=== PATIENT | male | born 1950 | race Caucasian/White ===

== ENCOUNTER 2025-09-08 20:59 | Emergency (ER) | payer MEDICARE, OTHER, SELFPAY ==
[2025-09-08 21:01] VITALS: BP 174/81; PULSE 68; RESP 18; TEMP 36.5; O2SAT 96; BMI 33.5
--- OUTSIDE RECORDS SUMMARY | 2025-09-08 21:08 | XMS_ITS | Encounter Summary ---
Author Organization [facility] Address [address] [place] [address] Care Team Providers Care Natural Resources Engineer Name Role Phone Shraddha Morales MD Primary Care Provider +1- [phone] Encounter Details Date Type Department Care Team (Latest Contact Info) Description 05/27/2001 Outpatient Historical HIS [facility] Gabe hKan MD NO ADDRESS ON FILE Unspecified gastritis and gastroduodenitis with hemorrhage (Primary Dx); Personal history of colonic polyps Social History Tobacco Use Types Packs/Day Years Used Date Smoking Tobacco: Never Assessed Sex and Gender Information Value Date Recorded Sex Assigned at Not on file Legal Sex Male 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
--- OUTSIDE RECORDS SUMMARY | 2025-09-08 21:08 | XMS_ITS | Encounter Summary ---
Author Organization [facility] Address [address] [place] [address] Care Team Providers Care Automation Tester Name Role Phone Shraddha Morales MD Primary Care Provider +1- [phone] Encounter Details Date Type Department Care Team (Latest Contact Info) Description 10/22/2005 Outpatient Historical [facility] [place] [address] [place] [address] James Mcnally MD NO ADDRESS ON FILE HYPERTENSION NOS (Primary Dx); PAROX ATRIAL TACHYCARDIA Social History Tobacco Use Types Packs/Day Years Used Date Smoking Tobacco: Never Assessed Sex and Gender Information Value Date Recorded Sex Assigned at Not on file 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
--- OUTSIDE RECORDS SUMMARY | 2025-09-08 21:08 | XMS_ITS | Encounter Summary ---
Author Organization [facility] Address [address] [place] [address] Care Team Providers Care Auriculotherapist Name Role Phone Shraddha Morales MD Primary Care Provider +1- [phone] Encounter Details Date Type Department Care Team (Latest Contact Info) Description 08/31/2006 Outpatient [facility] Gastroenterology[address] [place] [address] Gabe Khan MD NO ADDRESS ON FILE Unspecified Follow-Up Examination (Primary Dx); Personal History of Colonic Polyps Social History Tobacco Use Types Packs/Day Years Used Date Smoking Tobacco: Never Assessed Sex and Gender Information Value Date Recorded Sex Assigned at Not on file Legal Sex Male 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
--- OUTSIDE RECORDS SUMMARY | 2025-09-08 21:08 | XMS_ITS | Encounter Summary ---
Author Organization [facility] Address [address] [address] Care Team Providers Care Overnight Babysitter Name Role Phone Shraddha Morales MD Primary Care Provider +1- [phone] Reason for Referral * Outpatient Services (Routine) - Closed Specialty Diagnoses / Procedures Referred By Contac t Referred To Contact Diagnoses Essential (primary) hypertension Procedures MRA ABDOMEN W WO CONTRAST Shraddha Morales MD [address] [place] [address] Phone: tel: fax: [facility] Pre-Registration [place] CALL TO MAKE APPOINTMENT ONLY [address] [place] [address] Phone: tel: fax: Referral ID Status Reason Start Date Expiration Date V isits Requested Visits Authorized [id number] Closed [facility] TO SCHEDULE ([facility]) 05/25/2017 06/25/2018 1 1 Encounter Details Date Type Department Care Team (Latest Contact Info) Description 05/25/2017 Ancillary Orders [facility] Pre-Registration [place] CALL TO MAKE APPOINTMENT ONLY [address] [place] [address] Shraddha Morales MD [address] [place] [address] Essential (primary) hypertension Social History Tobacco Use Types Packs/Day Years Used Date Smoking Tobacco: Never Alcohol Use Standard Drinks/Week Comments No 0 (1 standard drink = 0.6 oz pur e alcohol) Sex and Gender Information Value Date Recorded Sex Assigned at Not on file Legal Sex Male 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 Exam: MRA ABDOMEN W WO CONTRAST Date/Time of Exam: 06/04/2017 11:56 AM Reason For Exam: Essential (primary) hypertension. Technique: MR angiography of the abdomen was performed prior to and following the administration of intravenous contrast. Contrast: 20 mL of MultiHance contrast material Findings: This examination demonstrate solitary widely patent renal arteries bilaterally. The superior mesenteric artery and the celiac artery are widely patent. The KIARA appears patent. The aorta is of normal contour and diameter. The kidneys are unremarkable. The gallbladder and the visualized portions of the liver appear normal. IMPRESSION: This examination demonstrates no evidence of flow-limiting renal artery stenosis. Narrative Procedure Note Yasmin Yuan MD - 06/04/2017 IMPRESSION IMPRESSION: Please see below. Exam: MRA ABDOMEN W WO CONTRAST Date/Time of Exam: 06/04/2017 11:56 AM Reason For Exam: Essential (primary) hypertension. Technique: MR angiography of the abdomen was performed prior to and following the administration of intravenous contrast. Contrast: 20 mL of MultiHance contrast material Findings: This examination demonstrate solitary widely patent renal arteries bilaterally. The superior mesenteric artery and the celiac artery are widely patent. The KIARA appears patent. The aorta is of normal contour and diameter. The kidneys are unremarkable. The gallbladder and the visualized portions of the liver appear normal. IMPRESSION: This examination demonstrates no evidence of flow-limiting renal artery stenosis. us Shraddha Morales MD MR ORDERABLES Final Resul t documented in this encounter Visit Diagnoses Diagnosis Essential (primary) hypertension Unspecified essential hypertension Essential (primary) hypertension Unspecified essential hypertension documented in this encounter Care Teams Overnight Babysitter Relationship Specialty Start Date End Date Shraddha Morales MD [address] [place] [address] PCP - General Family Practice 04/28/17 documented as of this encounter
--- OUTSIDE RECORDS SUMMARY | 2025-09-08 21:08 | XMS_ITS | Encounter Summary ---
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
--- OUTSIDE RECORDS SUMMARY | 2025-09-08 21:08 | XMS_ITS | Encounter Summary ---
Author Organization [facility] Address [address] [place] [address] Care Team Providers Care Examining Officer Name Role Phone Shraddha Morales MD Primary Care Provider +1- [phone] Encounter Details Date Type Department Care Team (Late st Contact Info) Description 03/02/2000 Outpatient Historical [facility] Medicine [address] [phone] Social History Tobacco Use Types Packs/Day Years Used Date Smoking Tobacco: Never Assessed Sex and Gender Information Value Date Recorded Sex Assigned at Not on file Legal Sex Male 5:01 AM CHAMBER WALKER Gender Identity Not on file Sexual Orientation Not on file documented as of this encounter Plan of Treatment Not on file documented as of this encounter Visit Diagnoses Not on filedocumented in this encounter Care Teams Examining Officer Relationship Specialty Start Date End Date Shraddha Morales MD [address] [place] [address] PCP - General Family Practice 04/28/17 documented as of this encounter
--- OUTSIDE RECORDS SUMMARY | 2025-09-08 21:08 | XMS_ITS | Encounter Summary ---
Author Organization [facility] Address [address] [facility] Attn: [place] [address] Care Team Providers Care Software Tools Build Engineer Name Role Phone Shraddha Morales MD Primary Care Provider +1- [phone] Encounter Details Date Type Department Care Team (Late st Contact Info) Description 05/27/2001 Outpatient Historical Gabe Khan MD NO ADDRESS ON FILE Social History Tobacco Use Types Packs/Day Years Used Date Smoking Tobacco: Never Assessed Sex and Gender Information Value Date Recorded Sex Assigned at Not on file Legal Sex Male 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
--- OUTSIDE RECORDS SUMMARY | 2025-09-08 21:08 | XMS_ITS | Encounter Summary ---
Author Organization [facility] Address [address] [place] [address] Care Team Providers Care Network Control Operators Supervisor Name Role Phone Shraddha Morales MD Primary Care Provider +1- [phone] Encounter Details Date Type Department Care Team (Latest Contact Info) Description 07/14/[address] 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
--- OUTSIDE RECORDS SUMMARY | 2025-09-08 21:08 | XMS_ITS | Encounter Summary ---
Author Organization [facility] Address [address] [place] [address] Care Team Providers Care Sourcing Analyst Name Role Phone Shraddha Morales MD Primary Care Provider [phone]- [phone] Encounter Details Date Type Department Care Team (Latest Contact Info) Description 08/31/2006 Outpatient Historical [facility] [place] [address] [place] [address] Gabe Khan MD NO ADDRESS ON FILE Personal History of Colonic Polyps (Primary Dx) Social History Tobacco Use Types Packs/Day Years Used Date Smoking Tobacco: Never Assessed Sex and Gender Information Value Date Recorded Sex Assigned at Not on file Legal Sex Male 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
--- OUTSIDE RECORDS SUMMARY | 2025-09-08 21:08 | XMS_ITS | Encounter Summary ---
Author Organization [facility] Address [address] [place] [address] Care Team Providers Care Distribution Engineering Technologist Name Role Phone Shraddha Morales MD Primary Care Provider +1- [phone] Encounter Details Date Type Department Care Team (Late st Contact Info) Description 03/31/2001 Outpatient Historical [facility] Klaus Israel MD [address] [facility] [address] [place] [address] Special screening for malignant neoplasm of prostate (Primary Dx) Social History Tobacco Use Types Packs/Day Years Used Date Smoking Tobacco: Never Assessed Sex and Gender Information Value Date Recorded Sex Assigned at Not on file Legal Sex Male 5:01 AM TRANSMITTER SUPERVISOR Gender Identity Not on file Sexual Orientation Not on file documented as of this encounter Plan of Treatment Not on file documented as of this encounter Visit Diagnoses Diagnosis Special screening for malignant neoplasm of prostate- Primary documented in this encounter Care Teams Distribution Engineering Technologist Relationship Specialty Start Date End Date Shraddha Morales MD [address] [place] [address] PCP - General Family Practice 04/28/17 documented as of this encounter
--- OUTSIDE RECORDS SUMMARY | 2025-09-08 21:08 | XMS_ITS | Encounter Summary ---
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
--- OUTSIDE RECORDS SUMMARY | 2025-09-08 21:08 | XMS_ITS | Encounter Summary ---
Author Organization [facility] Address [address] [place] [address] Care Team Providers Care Assistant Men'S Soccer Coach Name Role Phone Shraddha Morales MD Primary Care Provider +1- [phone] Encounter Details Date Type Department Care Team (Latest Contact Info) Description 05/05/2001 Outpatient [facility] [address] [place] [address] Klaus Israel MD [address] [place] [address] Reflux esophagitis (Primary Dx); Unspecified gastritis and gastroduodenitis without mention of hemorrhage; Unspecified essential hypertension; Other and unspecified hyperlipidemia Social History Tobacco Use Types Packs/Day Years Used Date Smoking Tobacco: Never Assessed Sex and Gender Information Value Date Recorded Sex Assigned at Not on file Legal Sex Male 5:01 AM ATHLETIC TRAINING INTERNSHIP Gender Identity Not on file Sexual Orientation Not on file documented as of this encounter Plan of Treatment Not on file documented as of this encounter Visit Diagnoses Diagnosis Reflux esophagitis- Primary Unspecified gastritis and gastroduodenitis without mention of hemorrhage Unspecified essential hypertension Other and unspecified hyperlipidemia documented in this encounter Care Teams Assistant Men'S Soccer Coach Relationship Specialty Start Date End Date Shraddha Morales MD [address] [place] [address] PCP - General Family Practice 04/28/17 documented as of this encounter
--- OUTSIDE RECORDS SUMMARY | 2025-09-08 21:08 | XMS_ITS | Encounter Summary ---
Author Organization [facility] Address [address] [place] [address] Care Team Providers Care Production Machinist Name Role Phone Shraddha Morales MD Primary Care Provider +1- [phone] Encounter Details Date Type Department Care Team (Late st Contact Info) Description 03/21/1999 Outpatient Historical [facility] Social History Tobacco Use Types Packs/Day Years Used Date Smoking Tobacco: Never Assessed Sex and Gender Information Value Date Recorded Sex Assigned at Not on file Legal Sex Male 5:01 AM CAFE AIDE Gender Identity Not on file Sexual Orientation Not on file documented as of this encounter Plan of Treatment Not on file documented as of this encounter Visit Diagnoses Not on filedocumented in this encounter Care Teams Production Machinist Relationship Specialty Start Date End Date Shraddha Morales MD [address] [place] [address] PCP - General Family Practice 04/28/17 documented as of this encounter
--- OUTSIDE RECORDS SUMMARY | 2025-09-08 21:08 | XMS_ITS | Encounter Summary ---
Author Organization [facility] Address [address] [place] [address] Care Team Providers Care Route Sales Delivery Drivers Supervisor Name Role Phone Shraddha Morales MD Primary Care Provider +1- [phone] Encounter Details Date Type Department Care Team (Late st Contact Info) Description 02/20/2000 Outpatient Historical [address] [phone] Social History Tobacco Use Types Packs/Day Years Used Date Smoking Tobacco: Never Assessed Sex and Gender Information Value Date Recorded Sex Assigned at Not on file Legal Sex Male 5:01 AM THERAPY TECHNICIAN Gender Identity Not on file Sexual Orientation Not on file documented as of this encounter Plan of Treatment Not on file documented as of this encounter Visit Diagnoses Not on filedocumented in this encounter Care Teams Route Sales Delivery Drivers Supervisor Relationship Specialty Start Date End Date Shraddha Morales MD [address] [place] [address] PCP - General Family Practice 04/28/17 documented as of this encounter
--- OUTSIDE RECORDS SUMMARY | 2025-09-08 21:08 | XMS_ITS | Encounter Summary ---
Author Organization [facility] Address [address] [place] [address] Care Team Providers Care Grappler Name Role Phone Shraddha Morales MD Primary Care Provider +1- [phone] Encounter Details Date Type Department Care Team (Latest Contact Info) Description 03/31/2001 Outpatient Historical [facility] [place] [address] [place] [address] Klaus Israel MD [address] [place] [address] Hemoptysis (Primary Dx) Social History Tobacco Use Types Packs/Day Years Used Date Smoking Tobacco: Never Assessed Sex and Gender Information Value Date Recorded Sex Assigned at Not on file Legal Sex Male 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
--- OUTSIDE RECORDS SUMMARY | 2025-09-08 21:08 | XMS_ITS | Encounter Summary ---
Author Organization [facility] Address [address] [place] [address] Care Team Providers Care Education Diagnostician Name Role Phone Shraddha Morales MD Primary Care Provider +1- [phone] Encounter Details Date Type Department Care Team (Latest Contact Info) Description 03/31/[address] [facility] [place] [address] [place] [address] Klaus Israel MD [address] [place] [address] Hemoptysis (Primary Dx); Abdominal pain, unspecified site; Unspecified essential hypertension Social History Tobacco Use Types Packs/Day Years Used Date Smoking Tobacco: Never Assessed Sex and Gender Information Value Date Recorded Sex Assigned at Not on file Legal Sex Male 5:01 AM QUILL STRIPPER Gender Identity Not on file Sexual Orientation Not on file documented as of this encounter Plan of Treatment Not on file documented as of this encounter Visit Diagnoses Diagnosis Hemoptysis- Primary Abdominal pain, unspecified site Unspecified essential hypertension documented in this encounter Care Teams Education Diagnostician Relationship Specialty Start Date End Date Shraddha Morales MD [address] [place] [address] PCP - General Family Practice 04/28/17 documented as of this encounter
--- OUTSIDE RECORDS SUMMARY | 2025-09-08 21:08 | XMS_ITS | Encounter Summary ---
Author Organization [facility] Address [address] [place] [address] Care Team Providers Care Leasing Associate Name Role Phone Shraddha Morales MD Primary Care Provider +1- [phone] Encounter Details Date Type Department Care Team (Latest Contact Info) Description 01/21/2005 Outpatient Historical [facility] Cardiology- [place] [address] [place] [address] James Mcnally MD NO ADDRESS ON FILE PAROX ATRIAL TACHYCARDIA (Primary Dx); HYPERTENSION NOS; MIXED HYPERLIPIDEMIA Social History Tobacco Use Types Packs/Day Years Used Date Smoking Tobacco: Never Assessed Sex and Gender Information Value Date Recorded Sex Assigned at Not on file Legal Sex Male 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
--- OUTSIDE RECORDS SUMMARY | 2025-09-08 21:08 | XMS_ITS | Clinical Summary ---
Author Organization [facility] tone Address [address] [place] [address] Care Team Providers Care Epic Professional Name Role Phone Shraddha Morales MD Primary Care Provider Allergies Active Allergy Reactions Criticality Noted Date Comments Penicillins Swelling Low 03/20/2009 Medications ALLOPURINOL 300 mg Oral Tab Take 300 mg by mouth daily. Active GARLIC 1,000 mg Oral Cap Take by mouth. Active simvastatin (ZOCOR) 20 mg tablet Take 20 mg by mouth late in the day. Active omeprazole (PriLOSEC) 20 mg Capsule, Delayed Release(E.C.) Take 20 mg by mouth daily. Active carvedilol (COREG) 12.5 mg tablet Take 25 mg by mouth 2 times daily with meals . Active hydroCHLOROthia zide (MICROZIDE) 12.5 mg capsule Take 12.5 mg by mouth daily. Active Fish Oil-[place]-3 Fatty Acids 360-1,200 mg Capsule Take 1 Capsule by mouth One capsule in the morning and two capsules in the evening. . Active cloNIDine HCl (CATAPRES) 0.1 mg tablet Take 0.1 mg by mouth daily As needed . 05/25/2017 Active escitalopram oxalate (LEXAPRO) 5 mg tablet Take 5 mg by mouth daily. 06/29/2017 Active amLODIPine (NORVASC) 10 mg tablet Take 1 Tablet (10 mg) by mouth daily. 30 Tablet 11 01/22/2018 Active telmisartan (MICARDIS) 80 mg Tablet Take 80 mg by mouth daily. Active cinnamon bark (CINNAMON ORAL) Take 1,200 mg by mouth daily. 2 caps in the morning Active Active Problems Problem Noted Date Diagnosed Date Chest pain 04/28/2017 Benign hypertension 04/28/2017 Immunizations Immunization Administration Dates Next Due Tetanus Vaccine IM 03/20/2009 Family History Medical History Relation Name Comments Heart Disease Father IN Relation Name Status Comments Father Social History Tobacco Use Types Packs/Day Years Used Date Smoking Tobacco: Never Smokeless Tobacco: Former Alcohol Use Standard Drinks/Week Comments No 0 (1 standard drink = 0.6 oz pur e alcohol) Sex and Gender Information Value Date Recorded Sex Assigned at Not on file 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 Gender Identity Not on file Sexual Orientation Not on file Last Filed Vital Signs Vital Sign Reading Time Taken Comments Blood Pressure 126/72 12/26/2020 8:54 AM FLORIST Pulse 60 12/26/2020 8:54 AM FLORIST Temperature 36.7 C (98.1 F) 04/28/2017 11:10 AM CDT Respiratory Rate 18 04/28/2017 11:1 0 AM CDT Oxygen Saturation 98% 04/28/2017 11: 10 AM CDT Inhaled Oxygen Concentration - - Weight 108.5 kg (239 lb 3.2 oz) 12/26/2020 8:54 AM FLORIST Height 180.3 cm (5' 11 ) 12/26/2020 8:54 AM FLORIST Body Mass Index 33.36 12/26/2020 8:54 AM FLORIST Plan of Treatment Health Maintenance Due Date Last Done Comments DTAP/TDAP/TD VACCINES (1 - Tdap) 1967 PNEUMOCOCCAL VACCINE 50+ YEA RS (1 of 1 - PCV) 1998 ZOSTER VACCINE (1 of 2) 1998 RSV VACCINE (60+ or ) (1 - 1-dose 75+ series) 2023 INFLUENZA VACCINE (#1) 2025 COLORECTAL SCREENING Discontinued 08/31/2006, 05/27/20 Colorectal Cancer Screening Discontinued FIT-DNA Q 3 years Discontinued FIT/FOBT Q 1 year Discontinued Flex Sig/CT Colonography Q 5 years Discontinued Insurance MEDICARE PART A AND B [facility] * Guarantor: [id number] Account Type Relation to Patient Date of Phone Billing Address Workers Comp [employer]er [employer] [address] [address] WORK[employer] Advance Directives For more information, please contact: [phone] * Full Code (Latest Code Status on File) Date Activated Date Inactivated Comments 04/28/2017 4:15 AM 04/28/2017 3:40 PM Care Teams Epic Professional Relationship Specialty Start Date End Date Shraddha Morales MD [address] [place] [address] PCP - General Family Practice 04/28/17
--- OUTSIDE RECORDS SUMMARY | 2025-09-08 21:08 | XMS_ITS | Encounter Summary ---
Author Organization [facility] Address [address] [place] [address] Care Team Providers Care Retail Manager In Training Name Role Phone Shraddha Morales MD Primary Care Provider [phone]- [phone] Encounter Details Date Type Department Care Team (Latest Contact Info) Description 01/21/2005 Outpatient [facility] [address] [place] [address] Wilbert Salas MD NO ADDRESS ON FILE PAROX ATRIAL TACHYCARDIA (Primary Dx) Social History Tobacco Use Types Packs/Day Years Used Date Smoking Tobacco: Never Assessed Sex and Gender Information Value Date Recorded Sex Assigned at Not on file 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
--- OUTSIDE RECORDS SUMMARY | 2025-09-08 21:08 | XMS_ITS | Encounter Summary ---
Author Organization [facility] Address [address] [place] [address] Care Team Providers Care Lead Database Administrator Name Role Phone Shraddha Morales MD Primary Care Provider [phone]- [phone] Encounter Details Date Type Department Care Team (Latest Contact Info) Description 01/21/2005 Outpatient Historical [facility] [address] [place] [address] Non-Staff, Physician NO ADDRESS ON FILE ABN BLOOD CHEMISTRY NEC (Primary Dx) Social History Tobacco Use Types Packs/Day Years Used Date Smoking Tobacco: Never Assessed Sex and Gender Information Value Date Recorded Sex Assigned at Not on file 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 Gender Identity Not on file Sexual Orientation Not on file documented as of this encounter Plan of Treatment Not on file documented as of this encounter Procedures Procedure Name Priority Date/Time Associated Diagnosis Comments GLUCOSE LEVEL Routine 01/21/2005 8:41 AM FACS TEACHER documented in this encounter Results * GLUCOSE LEVEL (01/21/2005 8:41 AM FACS TEACHER) GLUCOSE 90 70 - 110 mg/dL INTERFACE SYSTEM 01/21/2005 8:41 AM FACS TEACHER us Physician Non-Staff CHEMISTRY ORDERABLES Final R esult INTERFACE SYSTEM Refer to clinic/hospital department documented in this encounter Visit Diagnoses Diagnosis Other abnormal blood chemistry- Primary documented in this encounter Care Teams Lead Database Administrator Relationship Specialty Start Date End Date Shraddha Morales MD [address] [place] [address] PCP - General Family Practice 04/28/17 documented as of this encounter
== END 2025-09-09 01:12 | disposition left against medical advice (07) ==
PROVIDERS: Emergency Provider Emergency Medicine; PCP Family Medicine
DX: Z53.21 Procedure and treatment not carried out due to patient leaving prior to being seen by health care provider (principal)